=== PATIENT | male | born 1995 | race African-American/Black ===

== ENCOUNTER 2019-06-22 16:28 | Emergency (ER) | payer SELFPAY ==
[~2019-06-22] VITALS: Ht 167.6 cm; Wt 66.0 kg
[2019-06-22] MEDS ORDERED: KETOROLAC 60MG/2ML VIAL IM ONE (18:30)
[2019-06-22 19:30] VITALS: BP 125/62
== END 2019-06-22 19:31 | disposition home or self-care (01) ==
LOC: ER 16:51
DX: M25.512 Pain in left shoulder (principal); Z98.890 Other specified postprocedural states
CPT/HCPCS: 73030; 96372; 99283; J1885

== ENCOUNTER 2021-01-10 00:44 | Emergency (ER) | payer SELFPAY ==
[~2021-01-10] VITALS: Ht 172.7 cm; Wt 72.0 kg
[2021-01-10 02:46] LABS: CLARITY URINE CLEAR (CLEAR); COLOR URINE YELLOW (YELLOW); KETONES URINE 3+ (NEGATIVE); LEUKOCYTE ESTERASE URINE NEGATIVE (NEGATIVE); NITRITE URINE NEGATIVE (NEGATIVE); OCCULT BLOOD URINE TRACE (NEGATIVE); PH URINE 6.5 (4.5-8.0); PROTEIN URINE 1+ (NEGATIVE); SPECIFIC GRAVITY URINE 1.023 (1.005-1.030)
[2021-01-10 03:30] VITALS: BP 135/90
[2021-01-10] MEDS ORDERED: LIDOCAINE HCL 1% 20ML VIAL (Pyxis) INJ INFIL ONE (03:30)
[2021-01-10] MEDS ORDERED: AZITHROMYCIN 500 MG TABLET PO ONE (03:30)
[2021-01-10] MEDS ORDERED: ACETAMINOPHEN 325MG TABLET PO ONE (03:30)
[2021-01-10] MEDS ORDERED: CEFTRIAXONE SODIUM 500 MG/VIAL IM ONE (03:30)
== END 2021-01-10 03:38 | disposition home or self-care (01) ==
LOC: ER 00:44
DX: N34.2 Other urethritis (principal); Z20.2 Contact with and (suspected) exposure to infections with a predominantly sexual mode of transmission
CPT/HCPCS: 81003; 99283; J0696; J3490

== ENCOUNTER 2024-12-13 21:23 | Emergency (ER) | payer MEDICAID ==
[~2024-12-13] VITALS: Ht 167.6 cm; Wt 65.0 kg
[2024-12-13 21:35] VITALS: O2SAT 100
[2024-12-13] MEDS: BACITRACIN ZINC OINT UDPKT TOP ONE (22:24)
[2024-12-13] MEDS: TETANUS, DIPHTHERIA, PERTUSSIS VAC/PF 0.5ML (>10YR OLD) IM ONE (22:24)
[2024-12-13] MEDS: LIDOCAINE HCL/PF 1% 10 MG/ML 5ML VIAL INFIL ONE (22:25)
[2024-12-13] MEDS: IBUPROFEN 600MG TABLET PO ONE (22:25)
[2024-12-13] MEDS: AMOXICILLIN/POTASSIUM CLAVULANATE 875/125MG TAB PO ONE (22:26)
[2024-12-13] MEDS ORDERED: BO1 TP (23:05)
[2024-12-13] MEDS ORDERED: IBUP-2029 MT (23:05)
[2024-12-13] MEDS ORDERED: AMOX1TAB16 MT (23:05)
[2024-12-13 23:15] VITALS: BP 118/76; PULSE 95; RESP 18; TEMP 36.8; O2SAT 97
== END 2024-12-13 23:20 | disposition home or self-care (01) ==
LOC: ER 21:53
DX: S61.210A Laceration without foreign body of right index finger without damage to nail, initial encounter (principal); S60.221A Contusion of right hand, initial encounter; Z79.899 Other long term (current) drug therapy; X58.XXXA Exposure to other specified factors, initial encounter; Y93.89 Activity, other specified; Y92.89 Other specified places as the place of occurrence of the external cause; Y99.8 Other external cause status
CPT/HCPCS: 73130; 90715; 12001; 90471; 99284; J2003; Z7610 ×2

== ENCOUNTER 2024-12-15 15:48 | Emergency (ER) | payer MEDICAID ==
[~2024-12-15] VITALS: Ht 170.2 cm; Wt 75.0 kg
[~2024-12-15 15:48] MED LIST: AMOX1TAB16 MT; BO1 TP; IBUP-2029 MT
[2024-12-15 15:52] VITALS: O2SAT 100
[2024-12-15] MEDS ORDERED: BACI1OIN7 TP (16:17)
[2024-12-15] MEDS: IBUPROFEN 600MG TABLET PO ONE (16:20)
[2024-12-15 16:25] VITALS: BP 117/91; PULSE 70; RESP 18; TEMP 37.2; O2SAT 100
== END 2024-12-15 16:28 | disposition home or self-care (01) ==
LOC: ER 15:48
DX: S61.411D Laceration without foreign body of right hand, subsequent encounter (principal); G89.11 Acute pain due to trauma; Z98.890 Other specified postprocedural states; Z79.899 Other long term (current) drug therapy; W25.XXXD Contact with sharp glass, subsequent encounter
CPT/HCPCS: 99282

== ENCOUNTER 2024-12-25 19:37 | Emergency (ER) | payer MEDICAID ==
[~2024-12-25] VITALS: Ht 170.2 cm; Wt 64.0 kg
[~2024-12-25 19:37] MED LIST changes: +BACI1OIN7 TP
[2024-12-25 19:46] VITALS: O2SAT 100
[2024-12-25 20:43] VITALS: BP 114/57; PULSE 70; RESP 18; TEMP 36.8; O2SAT 100
== END 2024-12-25 20:47 | disposition home or self-care (01) ==
LOC: ER 19:37
DX: Z48.02 Encounter for removal of sutures (principal)
CPT/HCPCS: 99281; 99282

== ENCOUNTER 2025-01-23 14:53 | Emergency (ER) | payer MEDICAID ==
[~2025-01-23] VITALS: Ht 170.2 cm; Wt 65.0 kg
[2025-01-23 15:20] VITALS: O2SAT 99
[2025-01-23] MEDS ORDERED: KETO15CR2 TP (15:46)
[2025-01-23 15:59] LABS: CLARITY URINE CLEAR (CLEAR); COLOR URINE DARK YELLOW (YELLOW); GLUCOSE URINE NEGATIVE (NEGATIVE); KETONES URINE TRACE (NEGATIVE); LEUKOCYTE ESTERASE URINE NEGATIVE (NEGATIVE); NITRITE URINE NEGATIVE (NEGATIVE); OCCULT BLOOD URINE TRACE (NEGATIVE); PH URINE 5.5 (4.5-8.0); PROTEIN URINE 2+ (NEGATIVE); SPECIFIC GRAVITY URINE 1.033 (1.005-1.030); UROBILINOGEN URINE 1.0 E.U./dL (0.2-1.0)
[2025-01-23 16:08] VITALS: BP 121/70; PULSE 66; RESP 14; TEMP 37.2; O2SAT 100
[2025-01-23 16:57] LABS: BACTERIA URINE 2+; RBC URINE 0-2 /hpf (0-2); SQUAMOUS EPITHELIAL CELL URINE FEW /lpf (RARE/1+); WBC URINE 0-2 /hpf (0-2)
== END 2025-01-23 16:32 | disposition home or self-care (01) ==
LOC: ER 14:53
DX: J06.9 Acute upper respiratory infection, unspecified (principal); N48.1 Balanitis; Z79.899 Other long term (current) drug therapy
CPT/HCPCS: 81003; 99283